=== PATIENT | female | born 1985 ===

== ENCOUNTER 2023-11-24 08:50 | Outpatient (CLI) | payer OTHER, SELFPAY | END 2023-11-24 08:51 | disposition home or self-care (01) | LOC: ANHBWCAUD 09:11 | PROVIDERS: PCP Nurse Practitioner Family; Visit Provider Nurse Practitioner Family | DX: H90.3 Sensorineural hearing loss, bilateral (principal); H93.13 Tinnitus, bilateral | CPT/HCPCS: 92557; 92567 ==